=== PATIENT | male | born 1985 | race Caucasian/White ===

== ENCOUNTER → 2016-08-02 | Outpatient (CLI) | payer OTHER | LOC: CIMAGING 11:28 | PROVIDERS: ATTEND Family Medicine | DX: M54.5 Low back pain (principal) | CPT/HCPCS: 72100-PO ==

== ENCOUNTER 2017-05-19 12:05 | Inpatient (IN) | payer OTHER ==
--- NOTE | 2017-05-19 13:21 | EDPHY ---
H & P Time Seen by Provider: 05/19/17 13:00 HPI/ROS: CHIEF COMPLAINT: Abnormal behavior HISTORY OF PRESENT ILLNESS: History from the patient and his fiancee. His sister has bipolar disorder. He was in [place] on a business trip in his fiancee started getting unusual text messages from him. He got home and he appears very manic and grandiose, talking about"saving the human condition"and very rambling and tangential speech, not sleeping. 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 He is difficult to keep on track. Denies any medical complaints. REVIEW OF SYSTEMS: Eye: no change in vision ENT: no sore throat Cardiac: no chest pain or syncope Pulmonary: no cough or SOB Abdomen: no vomiting, diarrhea, abdominal pain Musculoskeletal: no back pain Skin: no rash Neuro: no headache Constitutional: no fever : no urinary symptoms Has not slept in over a week. A comprehensive 10 point review of systems is otherwise negative aside from elements mentioned in the history of present illness. PAST MEDICAL HISTORY: Negative Family history positive for sister with bipolar disorder Social history: Denies drugs or alcohol General Appearance: Alert and conversant, cooperative. Eyes: No scleral icterus. ENT, Mouth: Normal mucous membranes. Respiratory: Normal respiratory effort, breath sounds equal, lungs are clear to auscultation. Cardiovascular: Regular rate and rhythm. Gastrointestinal: Abdomen is soft and non tender. Neurological: Alert, face symmetric, normal motor and sensory in extremities. Skin: Warm and dry, no rashes. Musculoskeletal: No peripheral edema. Psychiatric: Patient has rambling and tangential speech. Perseverating about "the human condition"and continually repeating phrases. Emergency Department course/MDM: Placed on a mental health hold for grave disability based on information obtained from the patient as well as his fiancee. Appears to be acutely manic. 1354: The patient had a medical screening evaluation performed. There does not appear to be an acute emergent medical or surgical condition which would preclude psychiatric evaluation at this time. Mental health evaluation is requested at this time. 1500: Signed out to Wesley with psychiatric evaluation in progress. 1 mg oral Ativan. Seen by [facility] who agrees with hospitalization for inpatient psychiatric stabilization Constitutional: Initial Vital Signs Temperature (C) 36.8 C 03/03/18 12:12 Heart Rate 78 05/19/17 12:12 Respiratory Rate 18 05/19/17 12:12 Blood Pressure 146/120 H 05/19/17 12:12 O2 Sat (%) 97 05/19/17 12:12 O2 Delivery Mode Room Air Allergies/Adverse Reactions: No Known Allergies Allergy (Unverified 05/19/17 12:11) Home Medications: Medication Instructions Recorded NK [No Known Home Meds] 05/19/17 Medical Decision Making Differential Diagnosis: Differential considered including but not limited to ashvin or bipolar disorder, drugs, alcohol, metabolic. - Data Points Laboratory Results: Laboratory Results 05/19/17 12:45 05/19/17 12:45 05/19/17 05/19/17 05/19/17 12:45 12:45 12:45 WBC 7.87 10^3/uL 10^3/uL (3.80-9.50) RBC 5.88 10^6/uL 10^6/uL (4.40-6.38) Hgb 17.8 g/dL H g/dL (13.7-17.5) Hct 50.1 % % (40.0-51.0) MCV 85.2 fL fL (81.5-99.8) MCH 30.3 pg pg (27.9-34.1) MCHC 35.5 g/dL g/dL (32.4-36.7) RDW 11.3 % L % (11.5-15.2) Plt Count 244 10^3/uL 10^3/uL (150-400) MPV 10.8 fL fL (8.7-11.7) Neut % (Auto) 70.7 % % (39.3-74.2) Lymph % (Auto) 23.3 % % (15.0-45.0) [place] % (Auto) 5.0 % % (4.5-13.0) Eos % (Auto) 0.3 % L % (0.6-7.6) Baso % (Auto) 0.3 % % (0.3-1.7) Nucleat RBC Rel Count 0.0 % % (0.0-0.2) Absolute Neuts (auto) 5.58 10^3/uL 10^3/uL (1.70-6.50) Absolute Lymphs (auto) 1.83 10^3/uL 10^3/uL (1.00-3.00) Absolute Monos (auto) 0.39 10^3/uL 10^3/uL (0.30-0.80) Absolute Eos (auto) 0.02 10^3/uL L 10^3/uL (0.03-0.40) Absolute Basos (auto) 0.02 10^3/uL 10^3/uL (0.02-0.10) Absolute Nucleated RBC 0.00 10^3/uL 10^3/uL (0-0.01) Immature Gran % 0.4 % % (0.0-1.1) Immature Gran # 0.03 10^3/uL 10^3/uL (0.00-0.10) Sodium 141 mEq/L mEq/L (135-145) Potassium 3.7 mEq/L mEq/L (3.5-5.2) Chloride 99 mEq/L mEq/L (97-110) Carbon Dioxide 28 mEq/l mEq/l (22-31) Anion Gap 14 mEq/L mEq/L (8-16) BUN 16 mg/dL mg/dL (7-23) Creatinine 0.9 mg/dL mg/dL (0.7-1.3) Estimated GFR > 60 Glucose 107 mg/dL H mg/dL (70-100) Calcium 10.5 mg/dL H mg/dL (8.5-10.4) Urine Opiates Screen NEGATIVE (NEGATIVE) Urine Barbiturates NEGATIVE (NEGATIVE) Ur Phencyclidine Scrn NEGATIVE (NEGATIVE) Ur Amphetamine Screen NEGATIVE (NEGATIVE) U Benzodiazepines Scrn NEGATIVE (NEGATIVE) Urine Cocaine Screen NEGATIVE (NEGATIVE) U Marijuana (THC) Screen NEGATIVE (NEGATIVE) Ethyl Alcohol < 10 mg/dL mg/dL (0-10) Departure - Departure Clinical Impression: Ashvin Condition: Good Referrals: NONE *PRIMARY CARE P,. [Primary Care Provider] - As per Instructions
[2017-05-19 13:22] LABS: PLATELET COUNT 244 10^3/uL (150-400)
[2017-05-19] MEDS ORDERED: LORazepam 1 MG TAB PO ONE ×2 (14:47→20:08)
[2017-05-19] MEDS ORDERED: OLANZapine 5 MG TAB PO ONE (20:08)
[2017-05-19] MEDS ORDERED: LORazepam 1 MG TAB ONE (20:15)
[2017-05-19] MEDS ORDERED: MAG HYDROX/AL HYDROX/SIMETH 30 ML UDCUP PO PRN (20:45)
[2017-05-19] MEDS ORDERED: NICOTINE POLACRILEX 2 MG GUM B PRN (20:45)
[2017-05-19] MEDS ORDERED: LORazepam 0.5 MG TAB PO PRN (20:45)
[2017-05-19] MEDS ORDERED: MAGNESIUM HYDROXIDE 30 ML UDCUP PO PRN (20:45)
[2017-05-19] MEDS ORDERED: ACETAMINOPHEN 325 MG TAB PO PRN (20:45)
--- NOTE | 2017-05-20 08:00 | GCON ---
[f rep st] CONSULTATION INTERNAL MEDICINE CONSULT DATE OF CONSULTATION: 05/20/2017 REFERRING PHYSICIAN: Deni Bernal MD REASON FOR REFERRAL: Internal medicine evaluation for inpatient psychiatry. CHIEF COMPLAINT: Janneth. HPI: The patient is a 31-year-old healthy man who was admitted with janneth. Apparently, he was on a business trip and his fiancee started receiving bizarre texts, and when he got home he appeared manic and grandiose, and was brought to the emergency department. Currently, he is sleeping but easily ar ousable. He said he is here because he was doing some weird stuff. He denies any current complaints physically. He has not had any recent weight loss, fevers, chills, illnesses. No chest pain, palpi tations, shortness of breath, asthma. No abdominal complaints. No urinary. No musculoskeletal comp laints, except for some mild back pain and would like a massage. No neurologic complaints. No skin rashes. REVIEW OF SYSTEMS: A 10-point review of systems was done with pertinent positives present in HPI. PAST MEDICAL HISTORY: Negative. PAST SURGICAL HISTORY: He has had eye surgery and ankle surgery. 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 He denies any tobacco, drug, or alcohol use. FAMILY HISTORY: He has a sister who has bipolar. ALLERGIES: No known drug allergies. MEDICATIONS: None. PHYSICAL EXAM: VITAL SIGNS: Currently, he is afebrile. Heart rate 53, blood pressure 116/69, respi rations 14. He is 97% on room air. GENERAL: He is a very pleasant 31-year-old. He is in no distre ss. He is alert and oriented. Speech is clear and fluent. HEENT: Atraumatic. Pupils equal, round , and reactive. Extraocular movements intact. Mucous membranes moist. Oropharynx clear. Ears norm al. Hearing normal. NECK: Supple. No adenopathy. HEART: Regular rate and rhythm. No murmur, ga llop, or rub. LUNGS: Clear to auscultation. No wheeze, rhonchi, or rales. SPINE: Nontender to pa lpation. ABDOMEN: Soft, no masses. EXTREMITIES: No clubbing, cyanosis, or edema. MUSCULOSKELETAL : Grossly normal. No deformities. NEUROLOGIC: His speech is fluent. He is alert and oriented. He moves all 4 extremities. SKIN: No obvious rash. PSYCH: Mood is appropriate. LABORATORY DATA: CBC is within normal limits, except for a mildly elevated hemoglobin. Electrolytes and renal function are normal. Glucose is mildly elevated at 107. This is a nonfasting test. Urin e tox screen is negative. ASSESSMENT AND PLAN: 1. A 31-year-old presents with janneth. Please refer to psychiatric assessment for full details. 2. Mildly elevated glucose that is likely secondary to stress and I would not further evaluate this at this time. 3. Elevated hemoglobin and calcium. These are likely secondary to dehydration, and would have him f ollow up with the primary care provider when he is back to his normal state for a routine physical. Thank you for the consultation. No recommendations. /[id number]/MODL
[2017-05-20] MEDS: OLANZapine DISINTEGR 5 MG TAB PO PRN (11:46)
--- NOTE | 2017-05-20 13:46 | BAPA ---
[f rep st] ADMISSION PSYCHIATRIC ASSESSMENT DATE OF SERVICE: 05/20/2017 CHIEF COMPLAINT: The patient says "I'm here to deal with my stress." HISTORY OF PRESENT ILLNESS: The patient is a 31-year-old, single, engaged man who presente d with his fiancee and a friend to the [facility] ED due to significant behavioral changes and erratic behav iors. According to patient's fiancee, he returned yesterday from a business trip. During his trip t o [place] he hardly slept or ate. The fiancee said that she received nonsensical and tangential em ail. Patient went on a hike with his fiancee on 05/19/2017 and patient became uncharacteristically e motional when he received an upsetting text from his boss. He was crying uncontrollably according to his friend. Rufina also reports that the patient spent an excessive amount of money while he was i [facility] in an impulsive manner which is uncharacteristic of him. Patient had extreme difficulty focusing and answering questions when he was interviewed in the emergency department. [place] report s that the patient was grandiose and saying that he was on a mission to "save the human condition" wi th rambling and tangential speech. Patient reportedly told his fiancee that he felt that "humans hav e lost their connection" and that he was going to help "humans be able to connect." When this MD met with the patient on the inpatient [facility] on [address], he was more calm and r edirectable. He was less tangential, but still exhibiting pressured speech and racing thoughts. Radha lucero repeatedly told the same story to several different staff members. When this MD met with him, maxx pitts started talking about how Dion Terry , Sp Duron, Jimmy Neal and Phoenix Noonan all have "b ipolar ashvin and dyslexia," and he went on to tell MD, "just think of me as Igor Noonan." He also sa id "you wouldn't give Igor Noonan any medication for his ashvin because he is so successful." Patient said that he did not want to "be loaded up with a lot of drugs." He says that "I know what that loo ks like" referring to his sister who is on medication for bipolar disorder. He says "I don't want th at to happen to me." Patient also told MD that he has "started writing a book while I'm here because I don't have anything else to do." Patient also said that he was "building this mission, it's prett y soto, I just want to connect other humans." Patient did not endorse any hallucinations. He did n ot present as paranoid. He did not have ideas of reference or any other bizarre thoughts other than grandiose delusions. Patient was hyperactive, had increase in goal-directed activity. He did sleep approximately 8 hours after taking Zyprexa and Ativan. He continued to have racing thoughts, pressur ed speech, grandiose delusions and elevated and elated mood. PAST PSYCHIATRIC HISTORY: According to patient and his fiancee, the patient has no prior history of mental health treatment. He has no prior suicide attempts. No history of suicidal ideation. No sergey or psychiatric diagnoses. Has never been hospitalized in a psychiatric facility. He has never seen a therapist or a psychiatrist and never been on any form of psychotropic medications. ALLERGIES: Patient has no known drug allergies. CURRENT MEDICATIONS: Patient is currently not taking any prescription meds. PAST MEDICAL HISTORY: Patient has no significant medical conditions or chronic medical issues. PAST SURGICAL HISTORY: Patient does report that he has a prior history of eye surgery as well as ank le surgery. SOCIAL HISTORY: Patient appears to have an active support group as well as business relationships. He completed a Bachelor's degree in engineering from [employer]. While he was in college, he playe d division 1 basketball and volleyball. 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 He says that he is work ing as many hours as "two full-time jobs." Patient has led a very active lifestyle. He enjoys hikin g, running, skiing and other physical activities when not working. He is currently engaged. His [facility] phone number is [phone]. Patient lives with his rufina. Rufina reports that he has ne michael acted this way before. It is very strange and unusual behavior for him, completely out of charac ter. She has not witnessed or observed any type of manic or psychotic symptoms since she has known h im and that all these symptoms came on over just the past week while he was attending a [employer] in [place]. Patient has an older sister and a younger brother. His parents when maxx pitts was 12 years old. Both of his biological parents have remarried. Patient has been with his girlfr alla, now rufina, for the past 6 years. They are planning on getting in December of 2017. SUBSTANCE ABUSE HISTORY: Patient denies use of any illicit substances. He denies using marijuana or any form of cannabis. He also denies drinking alcohol on a regular basis. He says that he drinks " a few times a week, maybe a few times" but he denied any past history of alcohol abuse. His urine dr ug screen was negative. FAMILY HISTORY: Patient states that he has a sister who has been diagnosed with bipolar disorder and more recently her diagnosis was changed to schizoaffective disorder, bipolar type. According to the patient and his fimeserete, there was no report of any other family members with a history of mental il lness or with substance abuse issues. ADMISSION LABORATORIES: White cell count was 7.87, hemoglobin 17.8, hematocrit 50.1, platelet count 244. Sodium was 141, potassium 3.7, chloride 99, carbon dioxide 28, BUN 16, creatinine 0.9, glucose 107, calcium 10.5. Tox screen was negative. Blood alcohol level was less than 10. MENTAL STATUS EXAMINATION: This is a very tall, well-developed, appropriately-groomed man. He is able to sit still even though he appeared hyperactive and restless earlier in the day. He is gesticulating a lot with his hands. He has very pressured speech, racing thoughts, continuously rep eats the same story over and over again about Dion Terry, Sp Duron, Jimmy Neal and Phoenix trinidad all having bipolar disorder and not needing medications. His speech is rapid and volume is wit hin normal limits. He is alert and oriented x3. He does not understand the reason that he is in the hospital. He says because he could not "get a massage" while he was in the ED to get rid of his str ess. He denies any hallucinations. There is no evidence of paranoia. He denies being depressed. H is affect is elated and elevated. He denies any thoughts, plans or intent to hurt himself or anyone else. IMPRESSION: 1. Bipolar disorder type 1, most recent episode manic. This appears to be the 1st episode of ashvin based upon the patient's report and collateral information obtained from the rufina, who has known t he patient for 6 years. 2. Psychosocial stressors include he works 2 full-time jobs, otherwise appears to have sufficient so cial support and reliable family connections. PLAN: 1. At this time will admit patient to the inpatient Behavioral Health Services Unit on an M1 hold. 2. Continue to monitor for safety. Patient is denying any thoughts, plans or intent to hurt himself . He has no prior history of suicide attempts or suicidal ideation. Is able to contract for safety at this time. 3. The patient repeatedly said that he did not "want to be loaded up with a lot of drugs." This MD talked to the patient about mood stabilizers. He is familiar with these types of medications because his sister has been diagnosed with bipolar disorder and has been on mood stabilizers for a number of years. He says that he does not want to take those medications because he does not want to end up l brian his sister. MD talked about starting lithium and Depakote. The patient refused to consider taki ng those medications. He said "I will only take the same medications I was given in the emergency de partment, are you listening to me." The patient is agreeing to continue to take Ativan as well as Zy prexa p.r.n. He has had 2 doses since last night in the ED, and he seems much calmer and much more e asily redirected and less erratic than he was when he presented to the emergency department yesterday . This is likely due to the fact that he has been taking Ativan and Zyprexa. We will continue these medications for now. If patient continues to refuse medications, it is likely that we will need cou rt-ordered medications although if the patient continues to stabilize and does not pose an imminent r isk to himself or others, he may not meet criteria for grave disability. The determination will have to be made after he has been here longer and to see what benefits he gets from being on Zyprexa and Ativan. 4. Estimated length of stay is 3-5 days. /[id number]/MODL
[2017-05-20] MEDS ORDERED: OLANZapine DISINTEGR 10 MG TAB PO SCH (21:00)
[2017-05-21] MEDS: OLANZapine DISINTEGR 5 MG TAB PO PRN (10:58)
[2017-05-21] MEDS ORDERED: OLANZapine DISINTEGR 5 MG TAB PO PRN (11:34)
--- NOTE | 2017-05-21 11:48 | SOAPPROG ---
SOAP Progress Note Assessment/Plan: Assessment: Bipolar, I, Manic severe with psychotic features Patient has severe manic symptoms with grandiosity, paranoia, inappropriate yelling, and disorganized thinking/behavior. Plan: Short Term Certification Increase scheduled Zydis 20mg QHS Increase PRN Zydis 10mg for agitation/paranoia Ativan 2mg PRN severe anxiety or insomnia Monitor behavior, impulse control Add on AST, ALT, HgbA1c, Lipids, TSH to ER bloodwork 15 minute safety precautions 05/21/17 11:53 Subjective: CC: "Fucking stressed, this is EPIC" Patient makes numerous rambling statements, yells profanity at this M.D, asks M.D. to call Dion Terry, Phoenix Noonan, Susan, Jimmy Neal, reports he is a genius with 'elevated brain energy,' demands to be discharged to go hiking unless he can have a puppy on the unit, demands a massage therapist, screams at this M.D. that he knows he is manic but is angry 'because I know you are going to pump me full of lithium like my sister' and makes paranoid statements about not wanting to recorded by cameras in hallway and concern about staff going into his room. Objective: Vital Signs Temp Pulse Resp BP Pulse Ox 36.3 C 75 14 116/69 97 05/21/17 06:00 05/21/17 06:00 05/20/17 06:00 05/20/17 06:00 05/20/17 06:00 Alert tall well appearing male with glasses. Speech loud, yelling rapidly. Mood 'I'm fucking stressed, this is EPIC." Irritable and angry affect; Agitated with angry gesturing and pacing. Thoughts tangential with flight of ideas and loose associations. Grandiose ideas of being connected to [employer] and being able to start 4 new companies. Denies SI or HI or AH. Paranoid that this M.D. is 'going to pump me full of lithium.' Insight poor judgment impaired. Screaming profanity. Unable to be interviewed further as patient yells at this M.D. for 45 minutes continuously about a variety of topics. Paranoid ideas about cameras. Staff report patient received 5mg Zydis PRN along with 10mg scheduled Zydis, doing yoga in room, later yelling at staff and unable to participate in groups. Slept 7 hours. Common law Chantale [phone] reports patient has been acting agitated, bizarre, yelling, disorganized behavior, spent $1400 to create [employer] for [employer], illogical thinking, making grandiose statements about being connected to famous figures (Phoenix Noonan, Susan, Jimmy Neal, Dion Terry), not sleeping at all for days. Patient reports he is willing for staff to notify his father Tacho [phone] , who is a psychologist in [place], and sister Sarah [phone] of his admission but wants to be on phone if further information discussed beyond his diagnosis. Reportedly patients father was aware of admission and noted patients sister had a history of taking Lamictal, Ativan, and Abilify but now is on Haldol Decanoate injections for Schizoaffective Disorder. - Time Spent With Patient Time Spent With Patient: 45 minutes - Pending Discharge Pending Discharge Within 24 Hours: No Pending Discharge Within 48 Hours: No ICD10 Worksheet Patient Problems: Problems Problem Status Onset Bipolar affective disorder, currently manic, severe, with psychotic features Acute Janneth Acute
[2017-05-21] MEDS: OLANZapine DISINTEGR 10 MG TAB PO SCH ×2 (19:34→20:58)
--- NOTE | 2017-05-22 11:28 | SOAPPROG ---
SOAP Progress Note Assessment/Plan: Assessment: Bipolar, I, Manic severe with psychotic features Patient has severe manic symptoms with grandiosity, paranoia, inappropriate yelling profanity, severe agitation, and disorganized thinking/behavior. 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 Reports he doesn't want psychiatric medications and just wants to go for a hike. Reports wanting to talk to his father and nikolas's father about medication. Screams profanity at this M.D. and refuses interview. Objective: Vital Signs Temp Pulse Resp BP Pulse Ox 36.3 C 63 14 148/96 H 99 05/22/17 06:00 05/22/17 06:00 05/22/17 06:00 05/22/17 06:00 05/22/17 06:00 ALert WM. Psychomotor agitated, pacing wild hand gestures. Speech loud, rapid yelling, pressured. Screaming profanity repeatedly at this M.D. Thoughts tangential with flight of ideas and loose associations. Grandiose comments about [address] and that he is a genius that can cure others mental illness , reporting [facility]. Unable to assess if patient having violent or suicidal thoughts or hallucinations. Non-cooperative with interview , talking over and yelling at M.D. Paranoid statements about this M.D. being a drug dealer. Insight poor judgment impaired. Staff report patient refused Olanzapine last night and only slept 5.5 hours. LFTs, Lipids, TSH, HgbA1c WNL - Time Spent With Patient Time Spent With Patient: 15 minutes - Pending Discharge Pending Discharge Within 24 Hours: No Pending Discharge Within 48 Hours: No ICD10 Worksheet Patient Problems: Problems Problem Status Onset Bipolar affective disorder, currently manic, severe, with psychotic features Acute Janneth Acute
[2017-05-22] MEDS: OLANZapine DISINTEGR 10 MG TAB PO SCH (19:40)
[2017-05-22] MEDS: LORazepam 0.5 MG TAB PO PRN (19:41)
--- NOTE | 2017-05-23 09:12 | SOAPPROG ---
SOAP Progress Note Assessment/Plan: Assessment: Bipolar, I, Manic severe with psychotic features Patient has continued manic symptoms but is less agitated, less paranoia, and was compliant with Olanzapine last night. Plan: Short Term Certification Petition for Court Ordered medications submitted Continue Zydis 20mg QHS, monitor compliance Offer PRN Zydis 10mg for agitation/paranoia Offer PRN Ativan 2mg for severe anxiety or insomnia Monitor behavior, impulse control, manic symptoms Education about bipolar disorder and benefits of medication compliance 15 minute safety precautions 05/23/17 09:12 Subjective: CC: "I have the stable mind" Patient reports he is feeling improved. Reports tolerating Olanzapine and Ativan. Denies excessive sedation or slowing. Reports good visit with father ' he takes [place] and Ativan' and step-mother 'she has severe ADHD' last night. Reports he is aware that he has bipolar disorder and needs to take medication. Denies feeling angry. Denies violent or self-injurious thoughts. Makes rambling statements about being a business, being in a board room, being a director, and running multiple businesses. Objective: Vital Signs Temp Pulse Resp BP Pulse Ox 36.3 C 61 16 124/74 H 96 05/22/17 06:00 05/23/17 06:00 05/23/17 06:00 05/23/17 06:00 05/23/17 06:00 Alert tall WM with glasses. Speech loud, rapid and pressured at times. Thoughts tangential. Denies SI or HI or AH. Some grandiosity. Affect excited , euphoric. Mood 'I have the stable mind.' Memory fair. Insight limited. Judgment questionable. Staff report patient complied with Olanzapine ODT 20mg last night and got 2mg Ativan. On unit has been hyperverbal, expansive, with loud/pressured speech, multiple demands on staff, grandiose comments. Labs: HgbA1c, Lipids, TSH, LFTs WNL - Time Spent With Patient Time Spent With Patient: 20 minutes - Pending Discharge Pending Discharge Within 24 Hours: No Pending Discharge Within 48 Hours: No ICD10 Worksheet Patient Problems: Problems Problem Status Onset Bipolar affective disorder, currently manic, severe, with psychotic features Acute Janneth Acute
[2017-05-23] MEDS: LORazepam 0.5 MG TAB PO PRN (20:10)
[2017-05-23] MEDS: OLANZapine DISINTEGR 10 MG TAB PO SCH (20:10)
--- NOTE | 2017-05-24 12:43 | SOAPPROG ---
SOAP Progress Note Assessment/Plan: Assessment: Bipolar, I, Manic severe with psychotic features Patient was briefly grandiose and briefly agitated on unit yesterday but compliant with medication. Patient is improved today and more calm with remission of paranoia and grandiosity and severe agitation. Patient today is hyperverbal and tangential at times with poor insight, but calm and pleasant. Plan: Short Term Certification Court Ordered Medication Hearing 05/31/17 @ 10:30 Continue Zydis 20mg QHS Offer PRN Zydis 10mg for agitation/paranoia Offer PRN Ativan 2mg for severe anxiety or insomnia Monitor behavior, impulse control, manic symptoms Education about bipolar disorder and benefits of medication compliance 15 minute safety precautions Reviewed assessment and plan with patient and father on unit 05/24/17 12:45 Subjective: CC: "Great and ready to go" Patient reports sleeping well. Denies feeling sedated or slowed. Denies feeling agitated or irritable. Admits to impulsively spending $1200 prior to admit. Reports he recognizes that he was manic prior to admit. Reports "I was under stress, high anxiety, I apolgize for being a iris, I know I need to self- actualize and take care of myself.' Requests discharge. Unable to explain signs/symptoms of bipolar disorder. Objective: Vital Signs Temp Pulse Resp BP Pulse Ox 36.2 C 83 16 130/78 H 98 05/24/17 06:00 05/24/17 06:00 05/24/17 06:00 05/24/17 06:00 05/24/17 06:00 Alert WM with glasses. Speech RRR, loud and rapid with pressure at times. Mood 'great' affect euthymic, expansive at times. Thoughts organized but tangential. Denies SI or HI or AH. Insight poor. Judgment questionable. Denies grandiose connection with billionaires or ability to save patients on unit. No paranoia toward M.D./treatment/meds. Staff report patient slept 7.5 hours. Patient yesterday was grandiose, claiming he was treating and saving patients, but cooperative with staff and compliant with medication. - Time Spent With Patient Time Spent With Patient: 30 minutes 20 with patient 10 with patient, father, fiance - Pending Discharge Pending Discharge Within 24 Hours: No Pending Discharge Within 48 Hours: No ICD10 Worksheet Patient Problems: Problems Problem Status Onset Bipolar affective disorder, currently manic, severe, with psychotic features Acute Janneth Acute
[2017-05-24] MEDS: LORazepam 0.5 MG TAB PO PRN (19:55)
[2017-05-24] MEDS: OLANZapine DISINTEGR 10 MG TAB PO SCH (19:58)
--- NOTE | 2017-05-25 09:05 | SOAPPROG ---
SOAP Progress Note Assessment/Plan: Assessment: Bipolar, I, Manic severe with psychotic features Patient is improved today and more calm with remission of paranoia and grandiosity and severe agitation. Patient today is tangential and expansive at times but has some insight and has improved sleep. Plan: Short Term Certification Court Ordered Medication Hearing 05/31/17 @ 10:30, will consider dropping if patient consistently compliant with medications Continue Zydis 20mg QHS Offer PRN Zydis 10mg for agitation/paranoia Offer PRN Ativan 2mg for severe anxiety or insomnia Monitor behavior, impulse control, manic symptoms Education about bipolar disorder and benefits of medication compliance 15 minute safety precautions Discussed risks/benefits of adding [place]. Patient unwilling to take this medication at this time but is willing to continue Olanzapine 05/25/17 09:05 Subjective: CC: "Good" Patient reports wanting a family meeting with numerous people 'so I can be discharged today because I feel great.' Makes comments that his 'love and compassion' and fix/save patients on unit. Reports he wants to be involved in changing the structure and staffing and treatment protocols on the psychiatric unit and wants to 'be part of the [place]' that will manage the units move to [facility]. Denies feeling agitated or irritable. Reports sleeping well overnight. Reports not wanting to take [place] at this time because he doesn't want BID medications and only wants to take HS medications, reports benefit from Olanzapine 'I sleep better, I'm more calm, I know I was fucking manic before.' Objective: Vital Signs Temp Pulse Resp BP Pulse Ox 36.3 C 74 16 134/81 H 97 05/25/17 06:00 05/25/17 06:00 05/25/17 06:00 05/25/17 06:00 05/25/17 06:00 Alert tall WM with glasses. Overtalkative, speech RRR but loud at times. Mood 'really good' Affect euthymic, expansive at times. Thoughts organized but tangential at times. Denies SI or HI or AH or paranoia. Some grandiose comments about helping other patients and helping reform/fix psychiatric unit. Insight limited. Judgment questionable. Staff report patient slept 8 hours overnight. Pleasant on unit. Has been intrusive with other patients and counseling them on how to improve their mental health. - Time Spent With Patient Time Spent With Patient: 30 minutes - Pending Discharge Pending Discharge Within 24 Hours: No Pending Discharge Within 48 Hours: No ICD10 Worksheet Patient Problems: Problems Problem Status Onset Bipolar affective disorder, currently manic, severe, with psychotic features Acute Janneth Acute
[2017-05-25] MEDS: LORazepam 0.5 MG TAB PO PRN (20:08)
[2017-05-25] MEDS: LITHIUM CARBONATE ER 450 MG TAB PO SCH (20:09)
[2017-05-25] MEDS: OLANZapine DISINTEGR 10 MG TAB PO SCH (20:09)
[2017-05-26] MEDS: LORazepam 0.5 MG TAB PO PRN (02:59)
[2017-05-26] MEDS: LITHIUM CARBONATE ER 450 MG TAB PO SCH ×4 (08:46→19:31)
--- NOTE | 2017-05-26 17:59 | SOAPPROG ---
SOAP Progress Note Assessment/Plan: Assessment: Per Dr. Hwang's notes: Patient agreeable to continue Olanzapine 20mg PO QHS and start C-[place], after long discussion with father (psychologist). Ordered C-[place] 450mg BID with level for Sunday05/28/17. Discussed that level will not be a steady state but will be helpful for further management. Patient reviewed [facility] handout on C-Road. Discussed risk of excessive sedation, slowing, delirium and risk of toxicity with dehydration. Addendum entered and electronically signed by Donell Hwang MD 05/25/17 12:49: Met with patient, father, step-mother, and fiance. Discussed risks/benefits of increasing Olanzapine or adding [place] versus continuing current Olanzapine dose. Patient wants to discuss further with family and review [facility] handouts on these medications. Original Note: SOAP Progress Note Assessment/Plan: Assessment: Bipolar, I, Manic severe with psychotic features Patient is improved today and more calm with remission of paranoia and grandiosity and severe agitation. Patient today is tangential and expansive at times but has some insight and has improved sleep. Plan: Short Term Certification Court Ordered Medication Hearing 05/31/17 @ 10:30, will consider dropping if patient consistently compliant with medications Continue Zydis 20mg QHS Offer PRN Zydis 10mg for agitation/paranoia Offer PRN Ativan 2mg for severe anxiety or insomnia Monitor behavior, impulse control, manic symptoms Education about bipolar disorder and benefits of medication compliance 15 minute safety precautions Discussed risks/benefits of adding [place]. Patient unwilling to take this medication at this time but is willing to continue Olanzapine Plan: 05/26/17 17:55 1. Patient initially very "pissed off" that he was given C-[place] BID b/c he says he "only wanted to take it at night." After MD answered questions and explained why medication is dosed BID, he finally accepted and agreed to continue on his current dose. He is waiting to see what blood levels indicate on Sunday, and will discuss further tx options with Dr. Hwang. 2. MD spoke to patient's FOC after visit. His FOC feels patient will need "higher dose" of lithium to stabilize, but patient has said he is opposed to any "more meds." 3. [facility], court hearing for involuntary meds on 05/31/17. Subjective: Met with patient, reviewed chart and d/w staff. met with patient and his family, fiance and friends. He said he wanted his support network involved so they can hold him accountable for doing "whatever I agree to do." MD talked at length with patient about his lithium dose. He wanted frequent reassurance this was "a low dose" b/c he doesn't want to take "more meds" than he thinks he needs. He is willing to take 450mg BID, but "not any more." MD encouraged patient to keep an open mind about possibility of increasing dose based on what his blood level showed on Sunday. Objective: Vital Signs Temp Pulse Resp BP Pulse Ox 36.3 C 58 L 14 145/92 H 95 05/25/17 06:00 05/26/17 06:00 05/26/17 06:00 05/26/17 06:00 05/26/17 06:00 MSE: Mood: "Good" Affect: Elevated, labile, irritable TP: Tangential, loose TC: Denies SI/HI, not talking as much about running [employer] to help "humans connect" Insight/Judgment: Impaired - Time Spent With Patient Time Spent With Patient: 25" - Pending Discharge Pending Discharge Within 24 Hours: No Pending Discharge Within 48 Hours: No ICD10 Worksheet Patient Problems: Problems Problem Status Onset Bipolar affective disorder, currently manic, severe, with psychotic features Acute Janneth Acute
[2017-05-26] MEDS: OLANZapine DISINTEGR 10 MG TAB PO SCH (19:31)
[2017-05-27] MEDS: LITHIUM CARBONATE ER 450 MG TAB PO SCH ×2 (08:29→20:12)
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
[2017-05-27] MEDS: OLANZapine DISINTEGR 10 MG TAB PO SCH (20:12)
[2017-05-28] MEDS: LITHIUM CARBONATE ER 450 MG TAB PO SCH ×2 (08:49→20:07)
--- NOTE | 2017-05-28 11:27 | SOAPPROG ---
SOAP Progress Note Assessment/Plan: Assessment: Bipolar, I, Manic severe with psychotic features Patient is improved today with better insight and much more calm. Patient reportedly had intermittent manic symptoms over weekend but did not require PRN medications; patient slept well overnight and able to attend groups appropriately over weekend, had good support system Plan: Short Term Certification Court Ordered Medication Hearing 05/31/17 @ 10:30 if patient still hospitalized Continue Zydis 20mg QHS Discussed risks/benefits of increasing [place] 1200mg/day. Patient wants to continue dose [place] ER 450mg BID. Plan discharge tomorrow 05/29 if continued improvement Education about bipolar disorder and benefits of medication compliance 05/28/17 11:27 Subjective: CC: "I feel normal" Patient reports sleeping well. Denies feeling agitated or irritability. "I'm sorry I yelled at you last week." Reports feeling improved and not wanting medication changes. Reports wanting family meeting with fiance and father to discuss discharge planning. Reports reduction in racing thoughts. Denies feeling tired and having tremors or slowing. Willing to get outpatient follow up after discharge. Objective: Vital Signs Temp Pulse Resp BP Pulse Ox 36.3 C 63 14 133/79 H 96 05/28/17 06:00 05/28/17 06:00 05/28/17 06:00 05/28/17 06:00 05/28/17 06:00 Laboratory Results 05/28/17 05:40 Alert WM. Cooperative. Speech RRR. Mood 'back to normal.' Affect euthymic. Thoughts organized. Denies SI or HI. Denies AH or paranoia. Insight improved. Judgment questionable. Staff report patient slept 9 hours overnight, cooperative with medication. Over weekend of 05/26 - 05/27 patient had episodic irritability, yelling, tangential thinking. [place] level 0.5 this AM (not steady state, started 05/25/17) - Time Spent With Patient Time Spent With Patient: 25 minutes - Pending Discharge Pending Discharge Within 24 Hours: Yes Pending Discharge Date: 05/29/17 Pending Discharge Time: 11:00 ICD10 Worksheet Patient Problems: Problems Problem Status Onset Bipolar affective disorder, currently manic, severe, with psychotic features Acute Janneth Acute
[2017-05-28] MEDS: OLANZapine DISINTEGR 10 MG TAB PO SCH (20:06)
[2017-05-29 06:36] VITALS: BP 123/80; PULSE 73; RESP 16; TEMP 97.5; O2SAT 98
[2017-05-29] MEDS: LITHIUM CARBONATE ER 450 MG TAB PO SCH (08:17)
--- NOTE | 2017-05-29 10:40 | BDS ---
[f rep st] BEHAVIORAL HEALTH DISCHARGE SUMMARY IDENTIFICATION: This is a 31-year-old single white male who lives with his fimeserete. 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 REASON FOR ADMISSION: Please see initial psychiatric evaluation by Dr. Bernal from May 20, 2017. The patient apparently had traveled to a conference in [place] and when he returned to [place], had rapid pressured speech, tangential thinking, grandiosity, impulsive spending, severe agitation and erratic behavior. HOSPITAL COURSE: The patient on the unit was on an M1 hold for grave disability and then placed on a short-term certification after he refused to take medication and refused voluntary treatment. The patient initially was an ambulatory white male tall with glasses. He was psychomotor agitated. His speech was loud with yelling. His thoughts were tangential with flight of ideas. He had grandiosity and paranoid ideas of reference toward treatment. He denied violent thoughts or suicidal thoughts. He had poor insight and impaired judgment due to impulsivity and disorganization. The patient initially was started on olanzapine. This went up to 20 mg at night. During the first few days in the hospital, the patient refused medications, so I applied for court-ordered medications. Later he was compliant with the olanzapine 20 mg at night. The patient did have some improvement in sleep, a reduction in agitation and a reduction in grandiosity, but he continued to have rapid pressured speech, tangential thinking, disorganized thinking and brief agitation. The patient was then started on lithium 450 twice a day. The patient had gradual improvement with a reduction and manic symptoms. Prior to discharge, the patient had consistently been sleeping 8 hours at night for several nights. He was calm and appropriate in groups. He had improved insight and self-awareness that he had an episode of bipolar disorder. The patient was allowing care coordination with his father who is a psychologist from [place], as well as his fiancee that he lives with. They visited several times and agreed to monitor his medication compliance and assist him with outpatient followup after discharge. The patient was provided with informed consent about psychiatric medications. He was warned about the risks of weight gain, diabetes, hyperlipidemia, tardive dyskinesia with olanzapine, the risk of kidney disease, hypothyroidism, renal dysfunction, delirium, and toxicity with lithium as well as drug interactions. The patient initially for several nights on the unit required Ativan to help with sleep. He did not require this for three nights prior to discharge. CONDITION ON DISCHARGE: He is a tall, thin and alert white male in no acute distress. He is ambulatory, cooperative and pleasant. His speech is regular rate and rhythm. His thoughts are organized. He has good detail, good insight. He denies any thoughts to hurt himself or others. He denies paranoia. There is no evidence of grandiosity or delusions. His insight is good. His judgment is appropriate. CONSULTATIONS: The patient was seen by the hospitalist, Dr. Rubio, on May 20, 2017. PROCEDURES: none LABS PENDING: None. ALCOHOL USE DISORDER SCREENING: The patient reports drinking 1-2 drinks once a week. Denies a history of alcohol use disorder. NICOTINE USE DISORDER SCREENING: Patient denies nicotine use. ADVANCE DIRECTIVE: Patient declined to have an advance directive. METABOLIC SCREENING: The patient did have blood work with normal lipid panel, a normal hemoglobin A1c. He was counseled about the risk of metabolic syndrome with olanzapine. LABS DURING HOSPITALIZATION: There were no labs pending. He had a white blood cell count 7.8, hemoglobin 17.8, platelet count 244. Sodium 141, potassium 3.7, creatinine 0.9, glucose 107, calcium 10.5, hemoglobin A1c 4.9, AST 25, ALT 36, total cholesterol 180, HDL 70, LDL 94, triglycerides 80, TSH 1.8. In the emergency room, his urine drug screen was negative. On 05/28, his lithium level was 0.5, but that was after only 3 days of lithium, so the anticipated lithium level with his current dosing would be in the normal range. DISCHARGE DIAGNOSES: Bipolar disorder type 1, most recent episode manic severe with psychotic features. DISCHARGE MEDICATIONS: Olanzapine 20 mg by mouth at bedtime, extended release lithium 450 mg twice a day. Both of these medications were prescribed for 1 month bubble pack. Also lorazepam 1 mg p.o. at bedtime p.r.n. for severe insomnia #5. DISPOSITION: The patient is leaving the unit with his father who is a psychologist from [place], as well as with his fiancee that he lives with. FOLLOWUP: The patient was referred to the [facility] Intensive [facility]patient program for individual psychotherapy and psychiatric medication management. The patient was counseled that he should have his glucose and lipid panel rechecked in one month. LEGAL STATUS: He was admitted on M1 hold and then placed on a short-term certification. This will be terminated upon discharge so the patient will be a voluntary patient after discharge. /[id number]/MODL [id number]
== END 2017-05-29 11:25 | disposition home or self-care (01) | DRG 885 ==
LOC: BBEH 21:35
PROVIDERS: ADMIT Psychiatry & Neurology Psychiatry
DX: F31.2 Bipolar disorder, current episode manic severe with psychotic features (principal); E86.0 Dehydration
CPT/HCPCS: 80305; G0480

== ENCOUNTER 2018-07-19 12:44 | Inpatient (IN) | payer OTHER ==
--- NOTE | 2018-07-19 13:48 | EDPHY ---
H & P Stated Complaint: Experiencing acute psychosis; here voluntarily on rec. from Psych - Personal History Current Tetanus/Diphtheria Vaccine: Unsure Current Tetanus Diphtheria and Acellular Pertussis (TDAP): Unsure - Medical/Surgical History Hx Asthma: No Hx Chronic Respiratory Disease: No Hx Diabetes: No Hx Cardiac Disease: No Hx Renal Disease: No Hx Cirrhosis: No Hx Alcoholism: No Hx HIV/AIDS: No Hx Splenectomy or Spleen Trauma: No Other PMH: ankle surgery, - Social History Smoking Status: Never smoked Time Seen by Provider: 07/19/18 13:30 HPI/ROS: CHIEF COMPLAINT: "Why dont you just read the chart ?" HISTORY OF PRESENT ILLNESS: 32-year-old male history of bipolar disorder arrives via private vehicle with his rufina, in the ER voluntarily. History is obtained from both the patient his nikolase. Rufina relates that patient has been exhibiting approximately 1 week of hypomanic behavior, not sleeping, antagonistic behavior. Saw his psychiatrist yesterday who recommend an Ativan and rest however this was unsuccessful and his behavior has escalated yesterday and today and comes to the ER for evaluation. In interviewing the patient he is highly antagonistic in our conversation. He denies suicidal homicidal ideation REVIEW OF SYSTEMS: 10 systems reviewed and negative with the exception of the elements mentioned in the history of present illness PAST MEDICAL & SURGICAL HISTORY: Bipolar disorder SOCIAL HISTORY: Engaged PHYSICAL EXAM (Prior to examination, patient consented to physical exam, hands were washed and my usual and customary physical exam procedures followed) 1) GENERAL: Well-developed, well-nourished, alert and oriented. Appears to be in no acute distress. 2) HEAD: Normocephalic, atraumatic 3) HEENT: Pupils equal, round, reactive to light bilaterally. Sclera anicteric. Nasopharynx, oropharynx, clear, no lesions. MoistDry mucous membranes. Ears bilaterally with normal tympanic membranes. 4) NECK: Full range of motion, no meningeal signs. 5) LUNGS: Clear auscultation bilaterally, no wheezes, no rhonchi, no retractions. 6) HEART: Regular rate and rhythm, no murmur, no heave, no gallop. 7) ABDOMEN: No guarding, no rebound, no focal tenderness, negative McBurney's, negative Schneider's, negative Rovsing's, negative peritoneal sign, 8) MUSCULOSKELETAL: Moving all extremities, no focal areas of tenderness, no obvious trauma. No peripheral edema or discoloration. 9) BACK: No CVA tenderness, no midline vertebral tenderness, no fluctuance, no step-off, no obvious trauma, no visual or palpable abnormality. 10) SKIN: No rash, no petechiae. 11) Psychiatric: Patient is oriented X 3, there is no agitation. Rapid speech , flight of ideas. DIFFERENTIAL DIAGNOSIS: In no particular order including but not limited to psychosis, ashvin, medication noncompliance (Donna Hart) Constitutional: Initial Vital Signs Temperature (C) 37 C 07/19/18 12:47 Heart Rate 82 07/19/18 12:47 Respiratory Rate 16 07/19/18 12:47 Blood Pressure 154/87 H 07/19/18 12:47 O2 Sat (%) 94 07/19/18 12:47 O2 Delivery Mode Room Air Allergies/Adverse Reactions: No Known Allergies Allergy (Unverified 05/19/17 12:11) Home Medications: Medication Instructions Recorded Lockhart Carbonate ER [Lithobid 300 300 mg PO DAILY 07/20/18 mg (*)] Medical Decision Making ED Course/Re-evaluation: 1:45 p.m.: Consultation with secondary supervising physician gertrude Fernandez patient was placed on M1 hold as I think he is gravely disabled, he is exhibiting symptoms of ashvin and hypomania, he is highly antagonistic and suspicious when we speak. His fiancee is concerned about his well-being ability to care for himself. 5:00 p.m.: Care turned over to Dr. Mack Fernandez pending mental health evaluation (Donna Hart) Patient has been evaluated by mental health. He remained stable. They feel that he would best be cared for with in-patient Psychiatric Services. He has been accepted to psych at [facility]. I have reviewed his labs and they are stable (Jimy Lainez) 9:00 p.m.. Patient is being evaluated by Mental Health. Care transferred to Dr. Jimy Lainez at shift change. (Mack Fernandez) - Data Points Laboratory Results: Laboratory Results 07/19/18 13:55 07/19/18 13:55 Medications Given: Lockhart Carbonate (Lithobid) 300 mg PO BID LENY Stop: 01/16/19 08:59 Last Admin: 07/20/18 08:42 Dose: 300 mg Departure - Departure Disposition: [facility] IP Clinical Impression: Acute psychosis, Bipolar affective disorder, currently manic, severe, with psychotic features Condition: Fair
[2018-07-19 14:14] LABS: PLATELET COUNT 219 10^3/uL (150-400)
[2018-07-19] MEDS ORDERED: NICOTINE POLACRILEX 2 MG GUM B PRN (23:19)
[2018-07-19] MEDS ORDERED: MAGNESIUM HYDROXIDE 30 ML UDCUP PO PRN (23:19)
[2018-07-19] MEDS ORDERED: MAG HYDROX/AL HYDROX/SIMETH 30 ML UDCUP PO PRN (23:19)
[2018-07-19] MEDS ORDERED: ACETAMINOPHEN 325 MG TAB PO PRN (23:19)
--- NOTE | 2018-07-19 23:37 | ASMTTLCEVL ---
TLC Evaluation - Basic Information Evaluation Start Date and 07/19/2018 06:42 PM Time Hospital Status Answers: M1 Hold 72-hr M1 Hold Start Date 07/19/2018 01:42 PM and Time Patient statement Notes: Last year I was diagnosed with Bipolar Disorder. This year I dont feel sick, Im just here for family purposes. I have empathy for my dad and my fianc so I feel their pain. I feel sad and overwhelmed. Narrative Notes: This reported was completed by Hollie Maloney LPC, CAC II Pt is a 32 yo, engaged, employed, , male with a known history of Bipolar Disorder, who voluntarily presented to [facility] ED, but was placed on an M1 hold by ED physician Mack Fernandez MD which stated: Thomas is exhibiting manic/hypomanic symptoms, h/o bipolar d/o. I think he is gravely disabled. Pt denied past or current suicidal/homicidal ideation. Per ED report, pt was highly antagonistic during physical exam. BAL and UDS results negative. Pt appeared alert and clean. He was cooperative but tangential during the interview, and appeared to be a reliable historian. Pt did not endorse perceptual disturbances or auditory/visual hallucinations. He did not appear to be responding to internal stimuli. Pt did not require any restraints while in the ED. Collateral was obtained from pts , hugo, and psychiatrist. Pts hugo reported he began decompensating five days ago, and has become increasingly manic and agitated. She reported he has not been sleeping. She reported pt met with his psychiatrist on 07/17/18 and presented as fairly stable. She reported his condition worsened on 07/18/18 and they met with his psychiatrist again that evening. Pts psychiatrist, Tacho Zhao MD reported he was in a dysphoric mixed manic state. He reported pt was very inappropriate in his office, such as challenging Dr. Zhao, sliding and writhing on the floor crying, not able to contain his mood in the right way. Dr. Zhao stated he allowed pt to go home with his hugo and father, and they agreed to ensure pt took his prescribed medication. Dr. Zhao reported pts hugo called him again this morning reporting he was worse so he encouraged them to bring him to the ED. Diagnosis History Notes: Bipolar disorder type 1, most recent episode manic severe with psychotic features. Prior suicide attempts Notes: Pt denied a history of suicidal ideation, attempts, or self-injurious behaviors. He denied experiencing current thoughts of suicide. Prior hospitalizations Notes: Pt was admitted to [facility] Behavioral Inpatient Unit on 05/19/17 and discharged on 05/29/17 due to significant behavioral changes and erratic behaviors. Pt denied additional hospitalizations for mental health throughout his lifetime. Treatment Responses Notes: Pt was placed on an M1 hold prior to being admitted to [facility] on 05/19/17 due to being gravely disabled. While on the unit he refused to take medications and therefore was placed on a short-term certification. Per discharge summary, pt was cooperative and pleasant upon discharge. Pt reported he engaged in individual therapy with Catalina Miller in [place], [place] from September 2017 until April 2018. He reported he discharged from therapy because "I thought I was doing better." Dr. Zhao reported pt "had been doing very well" therefore they slowly decreased his medications. History of violence Notes: Pt denied a history of violence throughout his lifetime. Pt also denied any past/recent/current homicidal ideation/intent/plans to harm anyone else. Therapist: None Psychiatrist: Tacho Zhao MD Medications (name, dosage, route, freq uency) Notes: Souris 300 mg PO at bedtime per pt report. Allergies/Reaction Notes: No Known Allergies Sleep Notes: Pt denied any changes in his sleep. Pt's fiance reported he has been sleeping less this last week. Appetite Notes: Pt denied changes in his appetite. Medical/Surgical history Notes: Pt reported he received his "third eye surgery for misalignment" in February 2018. He reported his wisdom teeth have been removed. He denied additional medical/surgical history. Substance use history (frequency, intensity, his tory, duration) Notes: Pt reported he first consumed alcohol at age 18. He reported he began drinking two to three beers, three times per week at age 20 and stated this is his current pattern of alcohol use. He reported he last consumed one beer on 07/15/18. Pt denied experiencing any negative consequences related to his use of alcohol. He denied additional substance use throughout his lifetime. BAL and UDS results were negative. Family composition Notes: Pt reported he parents when he was 12 years old. He rported he has one older sister, a younger brother, and a younger sister. He reported having a close relationship with each of his siblings. Need for family Answers: Yes participation in patient's care Family psychiatric/substance abuse history Notes: Per previous report - Pt's sister has been diagnosed with bipolar disorder and more recently schizoaffective bipolar disorder per pt and fiance. There was no report of any other family member with a mental health diagnosis. There was no history reported of substance abuse in family of origin. Pt denied any history of past trauma or childhood abuse. Pt also stated he has never been a victim of violence or been violent towards others. Developmental history Notes: Per previous report - pt denied any developmental delays and gave no history of childhood diagnosis of ADD or ADHD. 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 Pt denied any history of loss of consciousness or TBI. Pt reported it was very difficult for him when his parents when pt was 12 years old. Abuse concerns Answers: None Marital status/children Notes: Pt is engaged and has been in a relationship with his fiance for seven years. He has not fathered any children. Pt's fiance was present in the ED, and provided collateral information. Living situation Notes: Pt lives with his fiance in a [facility] in [place], [place] which they own. Sexual history/orientation Notes: Heterosexual, active Peer support/family strengths Notes: PT has a supportive family and fiance. Pt appears to have a active peer support group and business relationships. Education level/history Notes: Pt obtained a bachelor of science in Global [employer] + Content Marketing from [employer]. 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 He stated, "I like the people, I don't like the job." Prior to being admitted in May 2017 he worked two jobs which he reported caused him significant stress. Notes: None reported Legal Notes: Pt denied any arrests/legal issues throughout his lifetime. Oriental Orthodox/Spiritual Notes: Pt reported that he identifies himself as a Pentecostal. None identified which might impact treatment. Leisure Notes: Pt reported he enjoys hikes, reading books, watching movies, traveling, and talking to his family during his free time. Collateral Notes: Collateral data obtained from previous inpt stay and from pt's fiance, father, and psychiatrist. Patient's strengths Answers: Athletic (Please select at least TWO strengths): Good Friend to Others Intelligent Responsible/Dependable Supportive Family [facility] Evaluation - Mental Status Exam Appearance: Answers: Appropriate Clean Well Groomed Neat Eye Contact: Answers: Good/Direct Mood: Answers: Elevated Irritable Affect: Answers: Agitated Expansive Irritable Behavior: Answers: Appropriate Cooperative Resistive to Care Talkative Speech: Answers: Clear Coherent Grandiose Perseverating Thought Process: Answers: Oriented Alert Tangential Insight: Answers: Poor Judgement: Answers: Poor Manic Signs/Symptoms Answers: Grandiosity Irritability Mood Swings Hallucinations: Answers: None Delusions: Answers: Grandiose Current Stage of Change Answers: Precontemplation Pt reported to have Answers: No suicidal/self-injuring ideation/behavior? Pt reported to be making Answers: No suicidal/self-injuring threats? Pt reported to have Answers: No aggression/assault ideation/behavior? Pt reported to be making Answers: No aggression/assault threats? Pt exhibits inability to Answers: Yes care for self/grave disability? Ideation/behavior is Answers: No chronic? Patient has a specific Answers: No plan? Pt has access to means to Answers: No execute the plan? Ideation involves Answers: No serious/lethal intent? History of Answers: No suicidal/self-injuring ideation, behavior, or threats? History of Answers: No aggressive/assaultive ideation, behavior, or threats? History of serious Answers: No physical harm to self/others while in treatment setting? [facility] Evaluation - Suicide/Homicide Risk Suicide Risk Factors: Answers: Agitation Bipolar Disorder Homicide/violence risk Answers: None factors: Current Suicidal Answers: No Ideation? Current Suicidal Ideation Answers: No in the Past 48 Hours? Current Suicidal Ideation Answers: No in the Past Month? Current Suicidal Answers: No Ideation, Worst Ever? Suicide Internal Answers: Frustration Tolerance Protective Factors: Oriental Orthodox Beliefs Suicide External Answers: Positive Therapeutic Protective Factors: Relationships Social Support Ranking of patient's Answers: Low suicidal risk: Ranking of patient's Answers: Low homicidal risk: [facility] Evaluation - Wrap-up BDI Total Score: Pt denied SI/HI, BDI and BDSS not completed. AXIS I Diagnosis (include DSM-V and ICD-10 codes), must also be entered in [employer], which is the source of truth. Notes: Bipolar I Disorder, current or most recent episode hypomanic 296.40 (F31.0) In consultation with [facility] ED Physician Jimy Lainez MD , PA and on-call Psychiatrist, Deni Bernal MD all concurred that pt appears to meet 27-65 criteria requiring psychiatric hospitalization as pt appears to be gravely disabled due to a mental illness condition. Pt was read the Patient Rights and Responsibilities Statement on 07/19/18 at 20:45 pm, original placed on chart, and was given photocopy of Rights. Pt signed the Patient Rights. Pt was given the 3N prohibited belongings list while in the ED. Evaluation End Date and 07/19/2018 11:20 PM Time (HH:MM): Date Signed: 07/19/2018 11:36 PM Electronically Signed By:Tacho Juarez
[2018-07-20] MEDS: LITHIUM CARBONATE ER 300 MG TAB PO SCH ×2 (08:42→20:19)
--- NOTE | 2018-07-20 11:11 | ASMTBHMTP ---
Master Treatment Plan Master Treatment Plan Answers: Mood Instability without for: Psychosis Date: 07/20/2018 Diagnosis on Admission: Bipolar I Disorder, current or most recent episode hypomanic 296.40 Expected length of stay: 3-5 Days Reason for admission: Notes: This reported was completed by Hollie Maloney LPC, CAC II Pt is a 32 yo, engaged, employed, , male with a known history of Bipolar Disorder, who voluntarily presented to [facility] ED, but was placed on an M1 hold by ED physician Mack Fernandez MD which stated: Thomas is exhibiting manic/hypomanic symptoms, h/o bipolar d/o. I think he is gravely disabled. Pt denied past or current suicidal/homicidal ideation. Per ED report, pt was highly antagonistic during physical exam. BAL and UDS results negative. Pt appeared alert and clean. He was cooperative but tangential during the interview, and appeared to be a reliable historian. Pt did not endorse perceptual disturbances or auditory/visual hallucinations. He did not appear to be responding to internal stimuli. Pt did not require any restraints while in the ED. Collateral was obtained from pts , hugo, and psychiatrist. Pts hugo reported he began decompensating five days ago, and has become increasingly manic and agitated. She reported he has not been sleeping. She reported pt met with his psychiatrist on 07/17/18 and presented as fairly stable. She reported his condition worsened on 07/18/18 and they met with his psychiatrist again that evening. Pts psychiatrist, Tacho Zhao MD reported he was in a dysphoric mixed manic state. He reported pt was very inappropriate in his office, such as challenging Dr. Zhao, sliding and writhing on the floor crying, not able to contain his mood in the right way. Dr. Zhao stated he allowed pt to go home with his hugo and father, and they agreed to ensure pt took his prescribed medication. Dr. Zhao reported pts hugo called him again this morning reporting he was worse so he encouraged them to bring him to the ED. Patient's stated presenting problems: Notes: Pt. stated he brought himself to the hospital due to "immense care and compassion for my family". Patient's goals for treatment: Notes: Pt. stated his goal is to "stay calm and composed have fun and humor, and get out share my passions with the world". Patient's strengths: Notes: Pt. stated his strengths are "empathetic, having humor, care more for Todd than Jesscia at this moment". Identify supports outside of hospital: Notes: Pt. stated "all my family and friends". Discharge criteria: Notes: Patient will demonstrate more stable mood by discharge. Initial disposition plan/considerations: Notes: Pt. stated he plans to return home and may take some time off before returning to work. Master Treatment Plan Required Signatures Psychiatrist signature: Answers: Deni Bernal MD: RN on-shift signature: Answers: RN: Patient signature: Answers: Patient: Date Signed: 07/20/2018 11:11 AM Electronically Signed By:Jessica Mcleod
--- NOTE | 2018-07-20 15:54 | ASMTCMCOM ---
CM Note CM Note Notes: CC met with pt. to complete MTP. Pt. reports wanting "10:1" interactions with therapist and psychiatrist. Pt. stated he feels therapy would help him more than medications. Pt. stated his strengths are "....care more for Jessica than Todd at this moment" but then changed he answer to "care more for Todd than Jessica at this moment". Pt. denies any current legal issues. Pt. reports drinking alcohol "very occasionally, only socially". Pt. reports "never smoked a thing in my life" and denied all substance use. Pt. stated what helps him most in the past year; "play again, be a kid again, give more, be self aware more, self awareness and compassion, grown a lot". Pt. reports seeing Dr. Tacho Zhao and is trying to get established with Marcy Chester. Pt. presents as alert, calm, somewhat grandiose, slightly entitled, good eye contact, groomed, and cooperative. Staff report pt. sleeping 5 hours and being medication compliant. Pt. to sign ROIs and CC to schedule follow up appointments. Date Signed: 07/20/2018 03:53 PM Electronically Signed By:Jessica Mcleod
--- NOTE | 2018-07-20 16:07 | GCON ---
[f rep st] CONSULTATION The patient is a pleasant 32-year-old gentleman with a history of bipolar, who presents with maite loredo. When I see the patient, he is calm and collected and we chat about his medical history. He has no si gnificant past medical history. He has no recent fever, chills, cough, nausea, vomiting, diarrhea. During the conversation, he expressed some frustration with being cared for in the mental health syst em, becoming animated at times. REVIEW OF SYSTEMS: Complete 10-point review of systems conducted, negative except as noted in the HP I. PAST MEDICAL HISTORY: Bipolar. ALLERGIES: No known drug allergies. HOME MEDICATIONS: Loami. SOCIAL HISTORY: Occasional alcohol. No tobacco. 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 Lives in [place]. Engaged. FAMILY HISTORY: Notable for mental illness. A sister committed suicide. PHYSICAL EXAMINATION: VITAL SIGNS: Temp 36.6, blood pressure 154/95, pulse 75, breathing 14 times a minute, 96% on room air. IN GENERAL: No acute distress. HEENT: Sclerae anicteric. Oropharynx cl ear. Mucous membranes moist. NECK: Supple. No lymphadenopathy or JVD. LUNGS: Clear to auscultat ion bilaterally. HEART: S1, S2. ABDOMEN: Soft, nontender, nondistended. LOWER EXTREMITIES: No e amaris. Calves are nontender. SKIN: Without rash. NEUROLOGIC: Exam is nonfocal. LAB: CBC: Hemoglobin and hematocrit are 18.5 and 54.1, which is slightly high. Platelets are 219. Sodium 138, potassium 4.0, chloride 99, bicarb 27, BUN 16, creatinine 1.1, glucose 92, calcium is no rmal. Tox screen is negative. Loami level is low at 0.5. I have discussed the case with Mack Fernandez. ASSESSMENT/PLAN: A 32-year-old gentleman, bipolar, and apparent ashvin. 1. Ashvin. Management per Psych. On the basis of his lithium level, he has probably been somewhat n oncompliant with his lithium. It does appear that he has a mistrust of drugs. It is a hurtle to get over and treat bipolar. 2. Polycythemia. The patient has a modestly elevated hematocrit in a young healthy nonsmoker. I wo uld not worry about this. Would follow. 3. Hypertension. This is common in this setting. I would not specifically treat it. Would follow. 4. Disposition. Management per Behavioral Health. Thank you for this consultation. Hospital Medicine will not follow. /[id number]/MODL
--- NOTE | 2018-07-20 18:53 | BAPA ---
[f rep st] ADMISSION PSYCHIATRIC ASSESSMENT DATE OF SERVICE: 07/20/2018 CHIEF COMPLAINT: "Last year was diagnosed with bipolar disorder. This year I don't feel sick. I'm just here for family purposes." HISTORY OF PRESENT ILLNESS: The patient is a 32-year-old, employed, man with a known history of bipolar, who voluntarily presented to [facility] ED but was placed on M1 hold by the ED physician, Mack Fernandez on 07/19/2018. According to his family, Todd is exhibiting manic symptoms similar to the way he presented when he was hospitalized in May of 2017. Family members think that the patient is becoming gravely disabled. The patient himself does not agree. He thinks that he knows what it felt like to be "sick" in 2018 and he says he does not feel that way now. The patient denied any current thoughts, plans, or intents to hurt himself or anyone else. During his evaluation in the emergency department, the staff in the ED report that the patient was "antagonistic" and also "suspicious." The patient denied any hallucinations, paranoia, or ideas of reference. He was not given any medications in the emergency department. The patient's fiancee reports that he started getting worse 5 days ago and says that he has become increasingly "manic and agitated." Since then, she says that he has not been sleeping. He met with his outpatient psychiatrist, Dr. Tacho Zhao on 07/17/2018 and was fairly stable. However, his condition worse on 07/18/[address] Zhao agreed to see the patient in his office that evening. According to Dr. Zhao, the patient was in a "dysphoric mixed manic state." Family reports that the patient was very inappropriate in Dr. Zhao's office, challenging Dr. Zhao, "sliding and writhing on the floor crying." Dr. Zhao allowed the patient to go home with his fimeserete. Father was visiting from out of town. Rufina and father both agreed that they would ensure that the patient took his medications as prescribed. Dr. Zhao did not make any changes to the patient's medication regimen. However, rufina called Dr. Zhao's office on 07/19/2018 and said that the patient was no better and that he was still extremely labile. Dr. Zhao recommended that the family take the patient to the emergency department. When this MD saw the patient on the inpatient Behavioral Services Unit, he had rapid thoughts, pressured speech. The patient had some impaired reality testing in that he did not understand the seriousness of his mental health symptoms. The patient's presentation was similar to the way this MD remembers him from May of 2017, in that he was talking very rapidly. He was somewhat grandiose in his belief that he knew better than the treatment team or than the psychiatrist what medications he should take. He initially refused to take increased dose of lithium, but later changed his mind and said he would take it because "I want to be able to leave as soon as possible." Despite patient's limited insight, he did not have full-blown ashvin. He did not have increase in goal-directed activity. He did not have full-blown grandiose delusions. He did not have reckless or impulsive behaviors. He was not jeopardizing his physical well-being in any way. He denied any thoughts, plans, or intents to hurt himself or anyone else. He did not endorse any psychotic symptoms. PAST PSYCHIATRIC HISTORY: The patient was previously treated on the inpatient Behavioral Health Unit from 05/19 to 05/29/2017. At that time the patient was refusing to take medications, even though he was in a full-blown manic state. He was treated at that time by Dr. Donell Hwang who petitioned the court for involuntary court-ordered medications due to the patient's refusal to take medications. The court granted involuntary medication order and the patient subsequently was placed on lithium 450 mg p.o. b.i.d. and olanzapine which helped significantly to stabilize the patient's mood. When the patient left the hospital, he initially saw Cecile Mcgovern in the outpatient Clinic at [facility], but then later transferred his care to Dr. Tacho Zhao. The family reports that Dr. Zhao was not sure whether the patient actually had bipolar disorder or whether or not he had an acute psychotic episode that resulted in his hospitalization and because the patient was relatively stable and doing well, is able to function, Dr. Zhao agreed to start reducing his medications to the point where the patient recently had been lowered down to only 300 mg of lithium p.o. at bedtime. The family reports that the patient had no prior psychiatric hospitalizations before 2018. He had never been diagnosed with any mental health condition, never been treated by a psychiatrist, or taken any psychiatric medications. The patient has no history of suicide attempts. ALLERGIES: The patient has no known drug allergies. CURRENT MEDICATIONS: The patient was currently prescribed lithium 300 mg p.o. at bedtime by his outpatient psychiatrist, Dr. Tacho Zhao. PAST MEDICAL HISTORY: The patient has no chronic medical issues, no acute medical problems. PHYSICAL EXAMINATION: He had modestly elevated hematocrit and his elevated BP, but he does not have a history of hypertension, so this was believed to be specific just to his evaluation in the ED. LABORATORY DATA: White cell count 7.62, hemoglobin is 18.5, hematocrit 54.1, platelet count 219. Sodium was 138, potassium 4.0, chloride 99. BUN 16, creatinine 1.1, glucose 92, calcium 10.1. Urine drug screen was negative for all drugs of abuse. His lithium level was 0.5. SOCIAL HISTORY: The patient is has been engaged to his fimeserete for several years. They are originally scheduled to be in December of 2017, but that was postponed after the patient's first psychiatric hospitalization, they live together. His parents live out of state. Parents were when he was 12 years old. He has 1 older sister, a younger brother and a younger sister. He says that he has a close relationship with all of his siblings. He has been in a relationship with his fiancee for 7 years. They only became engaged 2 years ago. They live in [place]. 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 He has only been at that job for 3 months. FAMILY HISTORY: The patient reports that his sister has been diagnosed with bipolar disorder. No other family member with a mental health diagnosis and reports no family history of substance abuse. SUBSTANCE ABUSE HISTORY: Patient started drinking alcohol when he was 18. He states that he currently drinks 2-3 beers per occasion at least 3 times a week. He says that he last drank alcohol on 07/15/2018. He denies use of any other substances. Urine drug screen was negative. LEGAL HISTORY: There are no current legal issues pending per the patient. MENTAL STATUS EXAMINATION: This is a very tall, man, athletic, appropriately groomed, dressed in street clothes including jeans, a long- sleeved shirt, and a baseball cap. He is alert and oriented x4. His demeanor is appropriate. His speech rate is normal. Volume is normal. His intellectual function appears to be average based upon his vocabulary, fund of knowledge, and educational and work history. He currently denies feeling sad, helpless, hopeless, worthless, or anxious. He denies any thoughts, plans, or intents to hurt himself or anyone else. He denies symptoms of psychosis. He denies auditory and visual hallucinations, paranoid delusions, and ideas of reference. He does have some slight increase in goal-directed activity. Some decreased need for sleep per his family. When this MD spoke with the patient he did not have racing thoughts or pressured speech, although later MD did observe him interacting with staff where he seemed to have pressured speech and was difficult to interrupt. He denies grandiose delusions. His thought process appears to be loose. His insight and judgment are both impaired as evidenced by his resistance to taking a more therapeutic dose of lithium which has helped maintain his mood stability over the last year, according to family. IMPRESSION: 1. Bipolar disorder, most recent episode manic without psychotic features. 2. Alcohol use disorder, unknown severity. 3. The patient is resistant to taking a more therapeutic dose of lithium, although per his own admission and his family's report, the patient has been compliant with his outpatient medication regimen as prescribed by Dr. Tacho Zhao. However, he has been reducing the dose of medications over the last several months. PLAN: 1. Admit to the inpatient Behavioral Health Services Unit on an M1 hold. 2. The patient is not currently exhibiting any signs of psychosis or unsafe behavior. He is acting appropriately. He is defensive at times, although not aggressive or agitated. He denies any thoughts, plans, or intents to hurt himself or anyone else. 3. We will continue to monitor and observe the patient. He does seem to be exhibiting some symptoms of ashvin, although whether or not he meets criteria for a full-blown manic episode this MD does have enough information to make that determination. It would be based upon the frequency and severity of his symptoms and his father and his fiancee gave conflicting information about how many hours he has been sleeping for how many days and how frequent his symptoms have been occurring. Nonetheless, the patient is clearly less stable and is experiencing more mood lability than at any time since his discharge from [facility] in May of 2017, according to the family's report. The most likely explanation for this is the decrease in his mood stabilizer dose over the last several weeks and months per his outpatient psychiatrist, Dr. Tacho Zhao. His lithium level was 0.5 in the emergency department which is subtherapeutic. It is likely that he will need to be on a higher dose of lithium in order to maintain mood stability. He was on 450 mg p.o. twice daily when he was discharged from the inpatient unit in May of 2017. This MD has recommended increasing his lithium dose to 300 mg p.o. twice daily. Initially the patient refused, but said that he wanted to be able to leave the hospital as soon as possible so "I will take the medicine." The risks, benefits, and side effects of the medication have been explained to the patient. He says that he is aware of them. He has been on the medication since his hospitalization in May of 2017. He does agree to take this medication. 4. Estimated length of stay is 2 to 3 days. /[id number]/MODL MTDD
[2018-07-20] MEDS: OLANZapine DISINTEGR 10 MG TAB PO PRN (20:48)
[2018-07-21] MEDS: LORazepam 0.5 MG TAB PO PRN ×2 (00:06→10:37)
[2018-07-21] MEDS: LITHIUM CARBONATE ER 300 MG TAB PO SCH ×2 (08:46→17:54)
[2018-07-21] MEDS: OLANZapine DISINTEGR 10 MG TAB PO PRN (10:37)
--- NOTE | 2018-07-21 14:53 | ASMTCMCOM ---
CM Note CM Note Notes: Pt. reports he is "tending to my fire". Pt. nodded yes that his sleep was restful. Pt. reports getting enough to eat and attending groups. Pt. reports "feel more relaxed, lethargic and clear" from his medications. Pt. denies any issues while on the unit. Pt. reports he would be willing to stay additional days "as long as I can leave on my own". Pt. denied SI, HI, AVH and paranoia. Pt. reports having "deep belly laughs" a few days ago, which were cathartic. Pt. reports he is able to make his own follow up appointments. Pt. reports he "feel exhausted in here". Pt. signed his MTP, but needing to take a long time to read and process it. Pt. denied SI, HI, AVH and paranoia. Pt. requested to discharge today. Pt's hold expires on 07/22/18 at 1342. Pt. presents as sedated, calm, somewhat argumentative, good eye contact, groomed, somewhat entitled, and somewhat cooperative. Staff report pt. sleeping 5 hours and being medication compliant. Staff did have to intervene with pt due to pt. going into areas of the unit where pt's are not allowed. Pt. has rearranged his room and placed all his items on the floor in order of how often he uses each item. CC left a message with Marcy Chester about an initial appointment. CC to setup follow up appointment with Dr. Tacho Zhao. Date Signed: 07/21/2018 02:52 PM Electronically Signed By:Jessica Mcleod
--- NOTE | 2018-07-21 19:31 | SOAPPROG ---
SOAP Progress Note Assessment/Plan: Assessment: 32-year-old male history of bipolar disorder came to ED w/ rufina who reports patient has been exhibiting approximately 1 week of hypomanic behavior, not sleeping, antagonistic behavior. Saw his psychiatrist, Tacho Zhao MD, on who recommended PRN Ativan. However, patient was worse on 07/19/18, and Dr. Zhao recommended family bring him to ED. Plan: 07/21/18 19:25 1. spoke at length with patient and his nikolase. Patient agreed to continue on 600mg TDD of lithium, but says he prefers to take full dose at HS. said that was possible, but since he'd already had dose this AM, it would have to start on Sunday. 2. Rufina said she thinks patient did better when he was on lithium and Olanzapine. Patient said he was willing to take Olanzapine PRN like he has been doing on unit. He also agreed to take Ativan PRN at home. 3. Rufina said she would text Dr. Zhao to schedule a f/u appointment this week. 4. Patient may d/c on Sunday or Sunday once aftercare plan finalized. Subjective: spoke with patient and his nikolase. Patient presented with elevated mood. He was resistant to taking Olanzapine when nikolasgisselle said he needed something in addition to lithium when he is agitated or argumentative. Patient agreed to take Olanzapine PRN. suggested he could be sent home with Rx for Olanzapine 5mg Q4hrs PRN. Rufina thought this was a good plan. Patient agreed to complete a safety plan prior to discharge. He denies any SI/HI. Objective: Vital Signs Temp Pulse Resp BP Pulse Ox 36.4 C 82 16 130/91 H 94 07/21/18 12:06 07/21/18 12:06 07/21/18 12:06 07/21/18 12:06 07/21/18 12:06 MSE: Affect: Elevated, irritable at times Mood: "Great" TP: Disorganized TC: Denies any SI/HI Insight/Judgment: Poor - Time Spent With Patient Time Spent With Patient: 15" - Pending Discharge Pending Discharge Within 24 Hours: Yes Pending Discharge Date: 07/22/18 (Possible d/c on Sunday) Pending Discharge Time: 11:00 ICD10 Worksheet Patient Problems: Problems Problem Status Onset Acute psychosis Acute Bipolar affective disorder, currently manic, severe, with psychotic features Acute Janneth Acute
[2018-07-22] MEDS ORDERED: LORazepam 0.5 MG TAB PO PRN (05:36)
[2018-07-22] MEDS: LITHIUM CARBONATE ER 300 MG TAB PO SCH ×2 (07:50→20:40)
[2018-07-22] MEDS ORDERED: OLANZapine DISINTEGR 5 MG TAB PO PRN (09:00)
--- NOTE | 2018-07-22 13:19 | SOAPPROG ---
SOAP Progress Note Assessment/Plan: Assessment: Bipolar I Disorder, Severe. Most recent ashvin. No improvement noted (see subjective/objective note). Patient is not safe to discharge at this time as patient continues to exhibit signs ashvin. Patient requires continued inpatient care because of current ashvin, and requires inpatient level of care to stabilize in order to no longer be gravely disabled due to mental illness. Patients support system has inability to manage functional impairment at lower level of care. Patient could benefit from continued inpatient hospitalization for crisis stabilization, safety, and medication evaluation. Patient could benefit from medication change to lithium level 0.3 at lithium ER 300 mg BID. Increased today, and patient could benefit from continued hospitalization to monitor for response and toleration at increase dose. Started Zyprexa Zydis 10 mg po QHS for acute mood stabilization. Continue to monitor and evaluate based on response and toleration. Reassess readiness to discharge tomorrow. Plan: 1. Psychotropic medications: After reviewing options, risks, and benefits, patient agrees to increase lithium ER to 300 mg po QD and 600 mg po QHS. Patient agrees to Zyprexa Zydis 10 mg po QHS. No other medication changes as more time is needed to determine ongoing tolerability and efficacy. Plan is to continue to observe patient for response and side effects from medications, and ongoing monitoring and evaluation. 2. Review with patient informed consent and recommendations for psychotropic medication treatment listed below 3. Labs: no additional labs at this time 4. Therapy: continue milieu and group therapy 5. Further investigation including gathering information from patients relatives and review of past case records to inform treatment plan. 6. Safety/Wellness plan and follow-up outpatient appointments to be established prior to discharge. Next steps are for patient to meet with assurance services manager health care to plan a safe discharge plan and establish outpatient services for ongoing treatment. 7. Confer with inpatient treatment team regarding treatment plan. 8. Psychosocial stressors addressed through case loader operator. 9. Legal status: voluntary 10. Consider discharge tomorrow if patient is in stable condition, safe, and has a safe discharge plan. PSYCHOTROPIC MEDICATION TREATMENT INFORMED CONSENT and RECOMMENDATIONS: Review nature of condition, diagnosis, and prognosis. Review nature and purpose of psychotropic medication treatment. Review type of psychotropic medications being ordered. Review risk and benefits of psychotropic medication treatment. Review probable length of time patient will need to take medications. Review risk and benefits of not undergoing psychotropic medication treatment. Review alternative treatments to psychotropic medications. Review psychotropic medications contraindications, drug-drug interactions, side effects, and importance of reporting any side effects to a psychiatric provider or nurse during inpatient hospitalization, and upon discharge to patients psychiatric outpatient provider, primary care provider, or other health daytime caregiver. Review importance of asking a nurse, psychiatric provider, or primary care provider any questions or problems concerning the psychotropic medications. Verify patient understands the information that has been provided, and understands, accepts, and agrees to psychotropic medications. Review patients safety plan and importance of patient to report to staff while hospitalized if patient is ever a danger to self/others, or unable to care for self, and upon discharge, the importance for patient to contact [facility] or [facility], or go to the nearest emergency room, if patient is ever a danger to self/others, or unable to care for self. Recommend that upon discharge patient establish medication management treatment with a psychiatric provider, establishes routine therapy appointments, and follow-up with primary care provider. Verify patient understands and agrees to these recommendations. 07/22/18 13:18 Subjective: Following up with patient for evaluation of ashvin and safety. Patient reports, "I am doing well. Ready to go." Patient reports no side effects from current medications. Patient agrees to increase lithium ER to 300 mg po QD and 600 mg po QHS, and agrees to Zyprexa Zydis 10 mg po QHS. Patient agrees to meet with this CARDIOLOGY TECHNICIAN and his fiance today to review treatment plan, goals for hospitalization , readiness to discharge, and discharge plan. Patient agrees to meet with tx team today. Objective: Vital Signs Temp Pulse Resp BP Pulse Ox 36.5 C 76 16 149/96 H 97 07/22/18 06:00 07/22/18 06:00 07/22/18 06:00 07/22/18 06:00 07/22/18 06:00 TREATMENT TEAM MEETING: Pt met with tx team to review tx plan and goals for hospitalization. Tx team consensus is pt is not stable and could benefit from continued hospitalization. FAMILY MEETING: This CARDIOLOGY TECHNICIAN met with pt and pts hugo at pts request, and pts hugo agrees pt could benefit from continued hospitalization for stabilization and medication evaluation. MSE: The patient is a well-nourished male looking stated chronological age. Attire is appropriate and dress is casual. Grooming status is appropriate. Ambulation is independent. Gait is normal and coordinated. Posture is normal and relaxed. Eye contact is appropriate. Motor activity is appropriate with purposeful, organized, coordinated movements; with no involuntary movements. Attitude is cooperative. Patient appears distractible and does not relate well to this interviewer. Language production is spontaneous. Rate is pressured, latency of response is shortened, volume is appropriate. Articulation is clear. Patient reports mood as okay with incongruent and expansive affect. Patients thought process is tangential. Patient denies suicidal thoughts, denies homicidal ideation. Patient denies auditory, visual hallucinations. Patient denies delusions. Patient does not appear to be attending to internal stimuli. Patients attention and concentration are fair. Patient is oriented to person, place, time, and situation. Patients insight and judgment are poor. - Time Spent With Patient Time Spent With Patient: 30 minutes, met with patient individually, met with pt and pt's fiance at pt's request, and with pt and treatment team. - Pending Discharge Pending Discharge Within 24 Hours: No Pending Discharge Within 48 Hours: No ICD10 Worksheet Patient Problems: Problems Problem Status Onset Acute psychosis Acute Bipolar affective disorder, currently manic, severe, with psychotic features Acute Bipolar I disorder, most recent episode manic Chronic Ashvin Acute
--- NOTE | 2018-07-22 13:51 | ASMTCMCOM ---
CM Note CM Note Notes: The patient participated in clinical treatment team rounds as well as, a family meeting with his fiance, Chantale. The patient was cheerful and complimentary to staff. The patient and his family decided that he will remain in the hospital on a voluntary basis as he continues to improve and stabilize. Date Signed: 07/22/2018 01:49 PM Electronically Signed By:Elisa Hemphill
[2018-07-22] MEDS: OLANZapine DISINTEGR 10 MG TAB PO SCH (20:40)
[2018-07-23] MEDS: LITHIUM CARBONATE ER 300 MG TAB PO SCH ×2 (08:18→20:07)
--- NOTE | 2018-07-23 12:45 | SOAPPROG ---
SOAP Progress Note Assessment/Plan: Assessment: Bipolar I Disorder, Severe. Most recent ashvin. Slight improvement noted, notably improved sleep (see subjective/objective note). Patient is not safe to discharge at this time as patient continues to exhibit signs ashvin. Patient requires continued inpatient care because of current ashvin, and requires inpatient level of care to stabilize in order to no longer be gravely disabled due to mental illness. Patients support system has inability to manage functional impairment at lower level of care. Patient could benefit from continued inpatient hospitalization for crisis stabilization, safety, and medication evaluation. Patient could benefit from medication change to lithium level 0.3 at lithium ER 300 mg BID. Increased Sunday, and patient could benefit from continued hospitalization to monitor for response and toleration at increase dose. Started Zyprexa Zydis 10 mg po QHS for acute mood stabilization. Continue to monitor and evaluate based on response and toleration. Patient could benefit from continuity of care to discharge tomorrow to OP psychiatrist appointment at 3PM. Plan for discharge tomorrow. Plan: 1. Psychotropic medications: After reviewing options, risks, and benefits, patient agrees to continue current medications. No other medication changes as more time is needed to determine ongoing tolerability and efficacy. Plan is to continue to observe patient for response and side effects from medications, and ongoing monitoring and evaluation. 2. Review with patient informed consent and recommendations for psychotropic medication treatment listed below 3. Labs: no additional labs at this time 4. Therapy: continue milieu and group therapy 5. Further investigation including gathering information from patients relatives and review of past case records to inform treatment plan. 6. Safety/Wellness plan and follow-up outpatient appointments to be established prior to discharge. Next steps are for patient to meet with resident care manager rn to plan a safe discharge plan and establish outpatient services for ongoing treatment. 7. Confer with inpatient treatment team regarding treatment plan. 8. Psychosocial stressors addressed through casey saw operator. 9. Legal status: voluntary 10. Consider discharge tomorrow if patient is in stable condition, safe, and has a safe discharge plan. PSYCHOTROPIC MEDICATION TREATMENT INFORMED CONSENT and RECOMMENDATIONS: Review nature of condition, diagnosis, and prognosis. Review nature and purpose of psychotropic medication treatment. Review type of psychotropic medications being ordered. Review risk and benefits of psychotropic medication treatment. Review probable length of time patient will need to take medications. Review risk and benefits of not undergoing psychotropic medication treatment. Review alternative treatments to psychotropic medications. Review psychotropic medications contraindications, drug-drug interactions, side effects, and importance of reporting any side effects to a psychiatric provider or nurse during inpatient hospitalization, and upon discharge to patients psychiatric outpatient provider, primary care provider, or other health janitor caretaker. Review importance of asking a nurse, psychiatric provider, or primary care provider any questions or problems concerning the psychotropic medications. Verify patient understands the information that has been provided, and understands, accepts, and agrees to psychotropic medications. Review patients safety plan and importance of patient to report to staff while hospitalized if patient is ever a danger to self/others, or unable to care for self, and upon discharge, the importance for patient to contact [facility] or [facility], or go to the nearest emergency room, if patient is ever a danger to self/others, or unable to care for self. Recommend that upon discharge patient establish medication management treatment with a psychiatric provider, establishes routine therapy appointments, and follow-up with primary care provider. Verify patient understands and agrees to these recommendations. 07/23/18 12:43 Subjective: Following up with patient for evaluation of ashvin and safety. Patient reports, "Feeling just fine." Patient reports no side effects from current medications. Patient agrees to continue lithium ER to 300 mg po QD and 600 mg po QHS, and agrees to continue Zyprexa Zydis 10 mg po QHS. Patient reports sleeping throughout the night, approximately 8 hours of sleep, and feels rested this AM. [facility]HW (Quique) agrees and reports patient did sleep throughout the night. Objective: Vital Signs Temp Pulse Resp BP Pulse Ox 36.5 C 94 16 146/91 H 97 07/22/18 06:00 07/23/18 06:00 07/23/18 06:00 07/23/18 06:00 07/23/18 06:00 TREATMENT TEAM MEETING: Met with tx team to review tx plan and goals for hospitalization. Tx team consensus is pt is not stable and could benefit from continued hospitalization. Patient could benefit from continuity of care to discharge directly to OP psychiatrist appointment tomorrow at 3PM. FAMILY MEETING: This SCALE TECHNICIAN met with pt and pts hugo at pts request, and pts hugo agrees pt could benefit from continued hospitalization for stabilization and medication evaluation. Pts hugo reports she will plan for pt to discharge tomorrow as pt has an appointment with his OP psychiatrist. MSE: The patient is a well-nourished male looking stated chronological age. Attire is appropriate and dress is casual. Grooming status is appropriate. Ambulation is independent. Gait is normal and coordinated. Posture is normal and relaxed. Eye contact is appropriate. Motor activity is appropriate with purposeful, organized, coordinated movements; with no involuntary movements. Attitude is cooperative. Patient appears distractible and does not relate well to this interviewer. Language production is spontaneous. Rate is pressured, latency of response is shortened, volume is appropriate. Articulation is clear. Patient reports mood as okay with incongruent and expansive affect. Patients thought process is tangential, disorganized. Patient denies suicidal thoughts, denies homicidal ideation. Patient denies auditory, visual hallucinations. Patient denies delusions. Patient does not appear to be attending to internal stimuli. Patients attention and concentration are fair. Patient is oriented to person, place, time, and situation. Patients insight and judgment are poor. - Time Spent With Patient Time Spent With Patient: 15 minutes, met with patient individually and with patient and patient's fiance at patient's request. - Pending Discharge Pending Discharge Within 24 Hours: No Pending Discharge Within 48 Hours: No ICD10 Worksheet Patient Problems: Problems Problem Status Onset Acute psychosis Acute Bipolar affective disorder, currently manic, severe, with psychotic features Acute Bipolar I disorder, most recent episode manic Chronic Ashvin Acute
--- NOTE | 2018-07-23 14:36 | ASMTCMCOM ---
CM Note CM Note Notes: The patient discussed his symptoms and medication adjustments during treatment team including the collateral provided by Tacho Zhao MD. The patient expressed his confidence in [facility] and gratitude for support. The patient met again with the provider and his fiance, Chantale to discuss tx and discharge plan. The patient's overall symptoms of ashvin have decreased although he remains disorganized AEB speaking in tunisian, etc. The patient has confirmed follow up appointments (see discharge checklist). He agreed to remain in the hospital on a voluntary basis. This freelance copywriter discussed with the patient beginning therapy with a new provider, Mary Ellen Mason, PhD, the patient seemed motivated and eager; release completed and initial appointment scheduled. Date Signed: 07/23/2018 02:33 PM Electronically Signed By:Elisa Hemphill
[2018-07-23] MEDS: OLANZapine DISINTEGR 10 MG TAB PO SCH (20:08)
[2018-07-24 06:40] VITALS: BP 121/82
[2018-07-24] MEDS: LITHIUM CARBONATE ER 300 MG TAB PO SCH (07:44)
--- NOTE | 2018-07-24 11:24 | ASMTCMCOM ---
CM Note CM Note Notes: Ct. was seen during team rounds this morning. Ct. appeared somewhat disorganized and tangental. He was asking team members a lot of questions but was re-idrectable. Team recommended that he stays on the unit for another 24 hours on a voluntary basis but he refused and requested to be discharged. He will be discharged this afternoon and returning home. He has follow up appointment set and his father is coming to [facility]. Date Signed: 07/24/2018 11:23 AM Electronically Signed By:Katlyn Guaman
--- NOTE | 2018-07-24 13:25 | BDS ---
[f rep st] BEHAVIORAL HEALTH DISCHARGE SUMMARY REASON FOR ADMISSION: From the ED note dated 07/19/2018, the patient presented to the emergency department by private vehicle with his la. La reported the patient has been exhibiting, for approximately 1 week, what she described as hypomanic behavior, not sleeping, antagonistic behavior. Reportedly, patient saw his psychiatrist the day prior to presenting to the emergency department, was recommended Ativan and rest. However, this was reported as not successful and his behavior reportedly escalated the day prior to admission. Therefore, came to the emergency department with his la for an evaluation. The patient was admitted involuntarily and on an M1 hold due to being gravely disabled due to a mental illness. Patient was admitted for safety , crisis stabilization, and medication evaluation. ADMITTING DIAGNOSIS: Bipolar I disorder, most recent episode ashvin. ADMISSION PHYSICAL EXAM: Patient was seen on 07/20/2018 for history and physical for medical clearance for inpatient psychiatric hospitalization and treatment. The patient was medically cleared for inpatient psychiatric hospitalization and treatment. For further details, please refer to consultation document dated 07/20/2018. ADMISSION LABS: 1. CBC within normal limits except hemoglobin was elevated at 18.5, hematocrit was elevated at 54.1, RDW was low at 11. 2. BMP within normal limits. 3. Hemoglobin A1c within normal limits at 4.9. 4. Liver function within normal limits except total bilirubin was elevated at 1.5, unconjugated bilirubin was elevated at 1.4. 5. Lipid panel within normal limits except cholesterol was low at 138 and non- HDL cholesterol was low at 88. 6. Toxicology screen negative for all the substances that were screened and negative for ethyl alcohol. 7. Munden level on 07/19/2018 at time of admission was 0.5. The patient reported lithium dose at that time at 300 mg p.o. q.h.s. 8. Munden level on 07/22/2018 after receiving 2 days of lithium dosed 300 mg p.o. b.i.d., the patient's lithium level was 0.3. MAJOR PROCEDURES OR TESTS: None. HOSPITAL COURSE: The most prominent symptoms and behaviors while the patient was here were reports of racing thoughts. The patient presented distractible, irritable, at times agitated. At time of admission, the patient had a decreased need for sleep. The patient's sleep did improve throughout the course of his hospitalization. The patient reported he slept 8 hours on Sunday , 07/22/2018, and 8 hours on 07/23/2018. Munden ER was titrated to 300 mg p.o. daily and 600 mg p.o. q.h.s., was tolerated with no report of side effects. Zyprexa Zydis 10 mg p.o. q.h.s. was started to target mood symptoms, was tolerated with no report of side effects and with good response. The patient received the new dosing of lithium 300 mg p.o. daily and 600 mg p.o. q.h.s. on Sunday and Sunday. The patient was given written order instructions to have a lithium level completed, due by 07/27/2018 prior to a.m. dose. These written instructions were discussed with both patient and patient's fiancee at patient's request. Patient and patient's finance expressed understanding of instructions. Patient to continue lithium ER at 300 mg p.o. daily and 600 mg p.o. q.h.s and also to continue Zyprexa 10 mg p.o. q.h.s. after discharge. Patient has improved considerably with no signs of psychiatric symptoms and no psychiatric symptoms expressed. Patient reports he has improved since admission , states to be in stable condition, feels safe to discharge, and he contracts for safety. Patients response to treatment was good. There were no adverse or unexpected results of treatment. The patient was safe throughout stay, active in treatment, engaged in groups, and was appropriate with staff. Patient met with treatment team prior to discharge to assess readiness to discharge and review discharge plan. The treatment team consensus is the patient in stable condition, has a safe discharge plan, and is ready to discharge today. CONDITION AT DISCHARGE: Patient is in stable condition and is no longer a danger to self or others, and is not gravely disabled due to mental illness. Patient is no longer in need of inpatient level of care, and can be safely and effectively treated within the community. The patients level of risk at time of discharge is low. MSE: The patient is casually dressed and with good hygiene , and looks stated age. Patient is sitting, posture is upright, and position is relaxed. Patient appears awake, alert, and responds appropriately and reasonably during interview. Patient is engaged, relates well to interviewer, and emotional facial expression is appropriate to situation and changes appropriately with topic. Patient is cooperative, makes comfortable eye contact , and movements are voluntary, deliberate, coordinated, and smooth and even with no inappropriate movements. Patient makes laryngeal sounds effortlessly and shares conversation appropriately; pace of conversation is appropriate, and stream of talking is fluent; articulation is clear and understandable; word choice is effortless and appropriate for education level; completes sentences, occasionally pausing to think; rate and volume are appropriate for interview and setting. Patient reports mood as euthymic. Patients affect is stable with full variable range, congruent with mood, and appropriate to speech and circumstances. Patient has linear and logical thinking, with no loose associations, tangential thought, thought blocking, concrete thinking, or any other signs of formal thought disorder. Patient denies suicidal and homicidal ideation, and denies hallucinations and delusions. Patient appears to be a reliable historian with sound judgement and good insight into current condition. Patient has no apparent dysfunction in recent or remote memory noted , and no evidence of gross cognitive dysfunction noted at any point during the interview. DISCHARGE DIAGNOSIS: Bipolar I disorder, most recent episode ashvin. CURRENT MEDICATIONS: After reviewing options, risks, and benefits with the patient, the patient agrees to continue: 1. Zyprexa 10 mg p.o. q.h.s. 2. Munden ER 300 mg p.o. daily and 600 mg p.o. q.h.s. The patient requests prescriptions for these medications at time of discharge. Prescriptions for 30 days for each of the above medications are provided. Prescriptions and medications are reviewed with the patient at time of discharge to ensure accuracy and patient understanding. These medications were also reviewed with the patient's fiancee throughout the course of the patient's hospitalization. DISPOSITION: The patient left hospital independently and voluntarily with his fiancee and plans to return home with his fiancee. FOLLOWUP: operations coordinator reports the appropriate outpatient follow-up services have been established and outpatient appointments have been scheduled. The patient received written instructions with times and dates of outpatient follow-up appointments. The following follow-up recommendations were provided to the patient at discharge: Continue psychotropic medications as prescribed and attend appointments as scheduled. Report any side effects to a psychiatric outpatient provider, a primary care provider, or other health childcare administrator. Address any questions or problems concerning the psychotropic medications with a psychiatric outpatient provider, a primary care provider, or other health childcare administrator. Contact [facility] or [facility], or go to the nearest emergency room, if you are ever a danger to yourself/others, or unable to care for yourself. As soon as possible, establish a routine medication management treatment with a psychiatric provider, establish routine therapy appointments, and follow-up with a primary care provider. LEGAL COURSE: The patient was admitted on an M1 hold for involuntary inpatient psychiatric hospitalization. Patient discharged today independently and voluntarily. ATTITUDE AT TIME OF DISCHARGE: The patients attitude was positive at time of discharge, and patient reports looking forward to discharging today. The patient reports he feels safe to discharge, is no longer a danger to himself or others, is in stable condition, and contracts for safety. Patient states he will continue medications as prescribed, and establish medication management treatment with an outpatient provider after discharge. Patient reports he understands the information that has been provided to him, and he understands, accepts, and agrees to psychotropic medications. Patient describes internal protective factors as the coping skills he has learned while hospitalized here, and he plans to continue to practice these coping skills after discharge. FAMILY MEETING: This ALTERATION TAILOR reviewed discharge plan with patient's finance at patient's request, and patient's fiance agrees with patient discharging today. LABS AND STUDIES: There were no pending labs or studies at time of discharge. The patient was provided written instruction orders at time of discharge to have a lithium level completed. Munden level due by 07/27/2018. The patient provided written instructions to have a lithium level drawn prior to a.m. dose. ADVANCE DIRECTIVES: There were no advance directives on file, and patient was full code during this hospitalization. The following psychotropic medication treatment informed consent and recommendations were provided to the patient at time of discharge. Patient reports he understands, accepts, and agrees to the information that has been provided. PSYCHOTROPIC MEDICATION TREATMENT INFORMED CONSENT and RECOMMENDATIONS: Review nature of condition, diagnosis, and prognosis. Review nature and purpose of psychotropic medication treatment. Review type of psychotropic medications being prescribed. Review risk and benefits of psychotropic medication treatment. Review probable length of time will need to take medications. Review risk and benefits of not undergoing psychotropic medication treatment. Review alternative treatments to psychotropic medications. Review psychotropic medications contraindications, side effects, and importance of reporting any side effects to a psychiatric provider, primary care provider, or other health childcare administrator. Review importance of asking a psychiatric provider or primary care provider any questions or problems concerning the psychotropic medications. Review safety plan and the importance to contact [facility] or [facility] , or go to the nearest emergency room, if ever a danger to yourself/others, or unable to care for yourself. Recommend upon discharge to establish routine medication management treatment with a psychiatric provider, establish routine therapy appointments, and follow-up with a primary care provider. Verify patient understands, accepts, and agrees to the information that has been provided. /[id number]/MODL [id number]
== END 2018-07-24 16:14 | disposition home or self-care (01) | DRG 885 ==
LOC: BBEH 22:40
PROVIDERS: ADMIT Psychiatry & Neurology Psychiatry; ATTEND Psychiatry & Neurology Psychiatry
DX: F31.2 Bipolar disorder, current episode manic severe with psychotic features (principal); I10 Essential (primary) hypertension
CPT/HCPCS: 80305; G0480